=== PATIENT | female | born 1965 | race Caucasian/White ===

== ENCOUNTER 2018-11-18 06:33 | Day surgery (SDC) | payer BC ==
[2018-11-18] MEDS ORDERED: Propofol 200 MG/20 ML SDV IV ONE (06:34)
[2018-11-18] MEDS ORDERED: Lidocaine 2% 100 MG/5 ML Syringe IVPUSH ONE (06:34)
[2018-11-18] MEDS ORDERED: Sodium Chloride 0.9% 10 ML Syringe FLUSH PRN (06:45)
[2018-11-18] MEDS ORDERED: Lactated Ringers 1,000 ML IV SCH (06:45)
--- NOTE | 2018-11-18 08:09 | PCM.OPNOTE ---
- General Post-Op/Procedure Note Date of Surgery/Procedure: 11/18/18 Operative Procedure(s): egd with bx Findings: gastritis Pre Op Diagnosis: dysphagia Post-Op Diagnosis: gastritis Anesthesia Technique: MAC Primary Surgeon: Kirit Petersen Anesthesia Provider: Blu Barajas Pathology: stomach Complications: None Condition: Good Free Text/Narrative:: see dictation
[2018-11-18 09:14] VITALS: BP 122/67
--- NOTE | 2018-11-18 14:05 | OR ---
DATE OF OPERATION: 11/18/2018 SURGEON: Kirit Petersen MD PROCEDURE PERFORMED: Upper endoscopy. PREOPERATIVE DIAGNOSIS: History of dysphagia. POSTOPERATIVE DIAGNOSIS: Mild gastritis. INDICATIONS FOR PROCEDURE: This is a 53-year-old white female who several weeks ago felt like she got a small chicken bone caught in her throat. This resulted in some discomfort with swallowing. She had no any other overt symptoms suggesting anything serious, however because the dysphagia has persisted for about a month, we have offered and she has accepted an upper endoscopy. DESCRIPTION OF OPERATION: After an excellent IV sedation was administered, the bite block was inserted. The flexible endoscope was passed without difficulty down the esophagus. The stomach was insufflated, scope was passed through the pylorus, into the duodenum, and then slowly withdrawn. The following findings were noted. The 1st and 2nd portion of the duodenum was unremarkable. The stomach demonstrated some very mild gastritis. Biopsies were taken as well as a photo. The esophagus was unremarkable. The stomach was deflated, the scope was removed. The patient tolerated the procedure well. Results by letter. /[id number] /MODL
== END 2018-11-18 09:15 | disposition home or self-care (01) ==
LOC: FB.SDS 06:33
PROVIDERS: ATTEND Surgery
DX: R13.10 Dysphagia, unspecified (principal); K29.50 Unspecified chronic gastritis without bleeding; F32.9 Major depressive disorder, single episode, unspecified; F41.9 Anxiety disorder, unspecified; Z79.899 Other long term (current) drug therapy; Z88.0 Allergy status to penicillin
CPT/HCPCS: 88305; 88342; J2001; J2704; J7120